=== PATIENT | female | born 1985 | race African-American/Black ===

== ENCOUNTER 2018-07-08 08:00 | Outpatient (CLI) | payer MEDICAID ==
[2018-07-08] MEDS ORDERED: ULTRAM50 MG PO (14:28)
[2018-07-08] MEDS ORDERED: NAPROXEN250 MG PO (14:28)
[2018-07-08 14:54] LABS: BASOPHILS 0.1 % (0-2); EOSINOPHILS 0.5 % (0-7); HEMATOCRIT 35.8 % (36.0-48.0); HEMOGLOBIN 11.9 g/dL (12-16); IMMATURE GRANULOCYTES 0.3 % (0-5); LYMPHOCYTES 36.6 % (15-50); MCH 26.7 pg (26.0-34.0); MCHC 33.2 g/dL (31.0-37.0); MCV 80.4 fL (80.0-100.0); MEAN PLATELET VOLUME 10.1 fL (7.4-10.4); MONOCYTES 3.3 % (2-11); NEUTROPHILS 59.2 % (40-80); PLATELET COUNT 276 10x3/uL (130-400); RBC 4.45 10x6/uL (4.00-5.40); WBC 7.9 10x3/uL (4.8-10.8)
[2018-07-08 15:05] LABS: CALC OSMOLALITY 274 mosm/kg (275-300); CALCIUM 8.1 mg/dL (8.5-10.1); CARBON DIOXIDE 27.2 mmol/L (21.0-32.0); CHLORIDE - SERUM 105 mmol/L (98-107); CREATININE - SERUM 0.8 mg/dL (0.6-1.3); GLUCOSE 104 mg/dL (74-106); POTASSIUM - SERUM 3.5 mmol/L (3.5-5.1); SODIUM 138 mmol/L (136-145); UREA NITROGEN 11 mg/dL (7-18); eGFR NON AFRICAN AMERICAN 89 mL/min (90-120)
== END 2018-07-08 08:01 | disposition home or self-care (01) ==
LOC: D.OPS 08:00 → EDSTATUS 07-10 08:30 → D.PAN 07-10 08:30
PROVIDERS: ATTEND Obstetrics & Gynecology
DX: Z53.9 Procedure and treatment not carried out, unspecified reason (principal)